=== PATIENT | female | born 1965 | race African-American/Black ===

== ENCOUNTER 2016-10-02 17:41 | Emergency (ER) | payer SELFPAY ==
[~2016-10-02] VITALS: Ht 162.6 cm; Wt 94.0 kg
[~2016-10-02 17:41] MED LIST: DICY1TAB26 PO; IBUP800T23 PO; LISI20 PO; PREV30CA36 PO
[2016-10-02 17:46] VITALS: BP 149/99; PULSE 87; RESP 16; TEMP 98.2; O2SAT 98
[2016-10-02 18:11] LABS: GLUCOSE,URINE NEG (NEG); KETONE, URINE NEG (NEG); NITRITE,URINE NEG (NEG)
[2016-10-02 18:18] LABS: BLOOD, URINE MOD (NEG)
[2016-10-02 18:20] LABS: BACTERIA, URINE OCC /hpf; COMMENT (UR) CULT NOT INDICATED; CULTURE IF INDICATED CULT NOT INDICATED; SQUAMOUS EPITHELIAL CELL URINE 0-5 /hpf (0-5); URINE COLOR YELLOW (YELLW/STRAW); WBC, URINE 0-2 /hpf (0-5)
[2016-10-02] MEDS ORDERED: LISI-515 PO (19:58)
--- NOTE | 2016-10-02 20:16 | PD ---
HPI Chief Complaint: Flank/Kidney Pain Time Seen by Provider: 19:44 Travel History International Travel<30 days: No Contact w/Intl Traveler<30days: No Traveled to known affect area: No History of Present Illness HPI 51-year-old female complains of hematuria, dysuria and frequency, right flank pain. Patient states that the symptoms started 3 days ago. Patient has history of similar symptoms about a year ago and was seen in emergency room at that time. CT abdomen pelvis with questionable kidney stone. Patient states that symptoms resolved completely subsequently. Patient denies any headache. Patient denies any chest pain or shortness of breath. Patient states that the pain is aching pain and sharp pain localized to right flank area. Patient denies any pain radiation. Patient denies any fever chills. Patient status post hysterectomy. PFSH Past Medical History Autoimmune Disease: No Blood Disorders: No Cancer: No Cardiovascular Problems: Yes (HTN ) Cerebrovascular Accident: Yes ( TIA 2005) Diabetes: No Diminished Hearing: No Endocrine: No Gastrointestinal Disorders: No Genitourinary: No Hypertension: Yes Immune Disorder: No Implanted Vascular Access Dvce: No Musculoskeletal: No Neurologic: Yes (TIA [place] 2006) Psychiatric: No Reproductive: No Respiratory: No Immunizations Current: No Thyroid Disease: No ?: Not : 2 Para: 1 Miscarriage: 1 : 0 Tubal Ligation: Yes Past Surgical History Cholecystectomy: Yes Gynecologic Surgery: Yes (HYSTERECTOMY) Hysterectomy: Yes Other Surgery: Yes Social History Alcohol Use: Yes (OCCASIONAL) Tobacco Use: No Substance Use: No Allergies-Medications (Allergen,Severity, Reaction): Coded Allergies: No Known Allergies (Verified , 10/02/16) Reported Meds & Prescriptions Reported Meds & Active Scripts Active Reported Lisinopril 20 Mg Tab 20 Mg PO DAILY Prinivil 20 mg (Lisinopril) 20 Mg Tab 20 Mg PO DAILY Review of Systems General / Constitutional: No: Fever Eyes: No: Visual changes HENT: No: Headaches Cardiovascular: No: Chest Pain or Discomfort Respiratory: No: Shortness of Breath Gastrointestinal: No: Abdominal Pain Genitourinary: Positive: Frequency, Dysuria, Hematuria Musculoskeletal: No: Pain Skin: No Rash Neurologic: No: Weakness Psychiatric: No: Depression Endocrine: No: Polydipsia Hematologic/Lymphatic: No: Easy Bruising Physical Exam Narrative GENERAL: Well-nourished, well-developed patient. SKIN: Warm and dry. HEAD: Normocephalic. EYES: No scleral icterus. No injection or drainage. NECK: Supple, trachea midline. No JVD or lymphadenopathy. CARDIOVASCULAR: Regular rate and rhythm without murmurs, gallops, or rubs. RESPIRATORY: Breath sounds equal bilaterally. No accessory muscle use. GASTROINTESTINAL: Abdomen soft, non-tender, nondistended. MUSCULOSKELETAL: No cyanosis, or edema. BACK: Patient has moderate tenderness on palpation of the right flank area. Data Data Last Documented VS Vital Signs Date Time Temp Pulse Resp B/P Pulse Ox O2 Delivery O2 Flow Rate FiO2 10/02/16 17:46 98.2 87 16 149/99 98 Orders Urinalysis - C+S If Indicated (10/02/16 17:50) Ct Abd/Pel W/O Iv Contrast (10/02/16 19:57) Labs Laboratory Tests Test 10/02/16 18:00 Urine Color YELLOW Urine Turbidity CLEAR Urine pH 6.0 Urine Specific [place] 1.026 Urine Protein NEG mg/dL Urine Glucose (UA) NEG mg/dL Urine Ketones NEG mg/dL Urine Occult Blood MOD Urine Nitrite NEG Urine Bilirubin NEG Urine Leukocyte Esterase NEG Urine RBC 3-5 /hpf Urine WBC 0-2 /hpf Urine Squamous Epithelial 0-5 /hpf Cells Urine Bacteria OCC /hpf Microscopic Urinalysis Comment CULT NOT INDICATED MDM Medical Decision Making Medical Screen Exam Complete: Yes Emergency Medical Condition: Yes Medical Record Reviewed: Yes Interpretation(s) Last Impressions Abdomen/Pelvis CT 10/02/161956 Signed Impressions: Service Date/Time: Sunday, October 02, 2016 20:17 - CONCLUSION: Essentially unremarkable study. Froy Schroeder MD 21:19 PM. UA is negative. CT scan abdomen pelvis negative acute pathology. Differential Diagnosis Differential diagnosis including nephrolithiasis, pyelonephritis, UTI, colitis, cholecystitis. Narrative Course 51-year-old female with right flank pain, hematuria, dysuria and frequency. Diagnosis Primary Impression: Right flank pain Patient Instructions: General Instructions Additional Instructions: Take medication as needed for pain. Follow-up with personal physician. Return if persistent problem or worse. Med/Other Pt SpecificInfo: Prescription(s) given Scripts Methocarbamol (Robaxin)750 Mg Gou790 Mg PO QID #40 TAB Prov:Hunter Recio MD 10/02/16 Meloxicam (Mobic)15 Mg Tab15 Mg PO DAILY #20 TAB Prov:Hunter Recio MD 10/02/16 Disposition: 01 DISCHARGE HOME Condition: Stable Hunter Recio MD Oct 02, 2016 20:16
--- NOTE | 2016-10-02 21:08 | RADHPO ---
EXAM DATE/TIME: 10/02/2016 20:17 [facility] COMPARISON: No previous studies available for comparison. INDICATIONS : Right sided flank pain. ORAL CONTRAST: No oral contrast ingested. RADIATION DOSE: 26.17 CTDIvol (mGy) MEDICAL HISTORY : Hypertension. SURGICAL HISTORY : Cholecystectomy. Tubal ligation.Hysterectomy. ENCOUNTER: Initial ACUITY: 3 days PAIN SCALE: 6/10 LOCATION: Right flank TECHNIQUE: Volumetric scanning of the abdomen and pelvis was performed. Using automated exposure control and ad justment of the mA and/or kV according to patient size, radiation dose was kept as low as reasonably achievable to obtain optimal diagnostic quality images. FINDINGS: CT Abdomen: The liver, spleen, pancreas, kidneys, adrenals are unremarkable. There is no evidence for any appreciable pathological adenopathy, free fluid, or bowel obstruction. There is no evidence for any stones in the kidneys or the course of the ureters on either side. There is no hydronephrosis. CT pelvis: There is no evidence for mass, abscess formation, or any significant adenopathy within the pelvis. There is a small bone island in the anterior column acetabulum on the left. The appendix kameron ears intact without definite signs of appendicitis. CONCLUSION: Essentially unremarkable study. Froy Schroeder MD on October 02, 2016 at 21:04 Board Certified Radiologist. This report was verified electronically.
[2016-10-02] MEDS ORDERED: MOBI15TA PO (21:23)
[2016-10-02] MEDS ORDERED: ROBA750T PO (21:23)
[2017-01-27] MEDS ORDERED: METF500T PO (09:05)
[2017-01-27] MEDS ORDERED: AMLO10 PO (09:10)
[2017-01-27] MEDS ORDERED: CHLO25TA2 PO (09:10)
== END 2016-10-02 21:35 | disposition home or self-care (01) ==
LOC: PHED 17:41
DX: R10.9 Unspecified abdominal pain (principal); R31.9 Hematuria, unspecified; R30.0 Dysuria
CPT/HCPCS: 74176; 81001

== ENCOUNTER 2016-11-30 18:58 | Emergency (ER) | payer OTHER ==
[~2016-11-30] VITALS: Ht 162.6 cm; Wt 95.1 kg
[~2016-11-30 18:58] MED LIST changes: -DICY1TAB26 PO; -IBUP800T23 PO; +LISI-515 PO; +MOBI15TA PO; -PREV30CA36 PO; +ROBA750T PO
[2016-11-30 19:04] VITALS: BP 145/97; PULSE 99; RESP 22; TEMP 98.8; O2SAT 98
--- NOTE | 2016-11-30 19:24 | PD ---
HPI Chief Complaint: Chest Pain Time Seen by Provider: 19:07 Travel History International Travel<30 days: No Contact w/Intl Traveler<30days: No Traveled to known affect area: No History of Present Illness HPI This 51-year-old female has multiple complaints. She's been having some tingling on the left side of her shoulder. She has occasional chest pain. She has a history of hypertension and is supposed to take lisinopril. She says that whenever she takes lisinopril she coughs a lot so she has not been taking it much. He did take it last night. She has no history of heart disease. She she does not smoke. She does say she has been under a lot of stress as her mother has been quite sick recently. PFSH Past Medical History Autoimmune Disease: No Blood Disorders: No Cancer: No Cardiovascular Problems: Yes (HTN ) Cerebrovascular Accident: Yes ( TIA 2005) Diabetes: No Diminished Hearing: No Endocrine: No Gastrointestinal Disorders: No Genitourinary: No Hypertension: Yes Immune Disorder: No Implanted Vascular Access Dvce: No Musculoskeletal: No Neurologic: Yes Psychiatric: No Reproductive: No Respiratory: No Immunizations Current: No Thyroid Disease: No ?: Not : 2 Para: 1 Miscarriage: 1 : 0 Tubal Ligation: Yes Past Surgical History Cholecystectomy: Yes Gynecologic Surgery: Yes (HYSTERECTOMY) Hysterectomy: Yes Other Surgery: Yes Social History Alcohol Use: Yes (OCCASIONAL) Tobacco Use: No Substance Use: No Allergies-Medications (Allergen,Severity, Reaction): Coded Allergies: No Known Allergies (Verified , 10/02/16) Reported Meds & Prescriptions Reported Meds & Active Scripts Active Robaxin (Methocarbamol) 750 Mg Tab 750 Mg PO QID Mobic (Meloxicam) 15 Mg Tab 15 Mg PO DAILY Reported Lisinopril 20 Mg Tab 20 Mg PO DAILY Prinivil 20 mg (Lisinopril) 20 Mg Tab 20 Mg PO DAILY Review of Systems General / Constitutional: No: Fever, Chills Eyes: No: Diploplia HENT: Positive: Headaches, No: Vertigo, Lightheadedness Cardiovascular: Positive: Chest Pain or Discomfort, No: Palpitations, Irregular Rhythm Respiratory: No: Cough, Shortness of Breath Gastrointestinal: No: Nausea, Vomiting Genitourinary: No: Urgency, Frequency Musculoskeletal: No: Myalgias, Arthralgias Skin: No Rash, No Itching Neurologic: No: Weakness, Dizziness, Syncope Endocrine: No: Heat Intolerance, Cold Intolerance Hematologic/Lymphatic: No: Easy Bruising Physical Exam Narrative GENERAL: Well-developed female SKIN: Focused skin assessment warm/dry. HEAD: Atraumatic. Normocephalic. EYES: Pupils equal and round. No scleral icterus. No injection or drainage. ENT: No nasal bleeding or discharge. Mucous membranes pink and moist. NECK: Trachea midline. No JVD. CARDIOVASCULAR: Regular rate and rhythm. No murmur appreciated. RESPIRATORY: No accessory muscle use. Clear to auscultation. Breath sounds equal bilaterally. GASTROINTESTINAL: Abdomen soft, non-tender, nondistended. Hepatic and splenic margins not palpable. MUSCULOSKELETAL: No obvious deformities. No clubbing. No cyanosis. No edema. NEUROLOGICAL: Awake and alert. No obvious cranial nerve deficits. Motor grossly within normal limits. Normal speech. PSYCHIATRIC: She does appear to be anxious; insight and judgment normal. Data Data Last Documented VS Vital Signs Date Time Temp Pulse Resp B/P Pulse Ox O2 Delivery O2 Flow Rate FiO2 11/30/16 19:52 98.0 92 16 152/72 95 Room Air Orders Electrocardiogram (11/30/16 19:21) Complete Blood Count With Diff (11/30/16 19:21) Comprehensive Metabolic Panel (11/30/16 19:21) Troponin I (11/30/16 19:21) Magnesium (Mg) (11/30/16 19:21) Chest, Single Ap (11/30/16 19:21) Amlodipine (Norvasc) (11/30/16 19:30) Lorazepam Inj (Ativan Inj) (11/30/16 20:00) Acetaminophen (Tylenol) (11/30/16 20:00) Potassium Chloride (Kcl) (11/30/16 20:15) Labs Laboratory Tests Test 11/30/16 19:50 White Blood Count 8.5 TH/MM3 Red Blood Count 4.60 MIL/MM3 Hemoglobin 12.9 GM/DL Hematocrit 38.2 % Mean Corpuscular Volume 83.0 FL Mean Corpuscular Hemoglobin 28.0 PG Mean Corpuscular Hemoglobin 33.7 % Concent Red Cell Distribution Width 12.8 % Platelet Count 412 TH/MM3 Mean Platelet Volume 8.0 FL Neutrophils (%) (Auto) 56.6 % Lymphocytes (%) (Auto) 34.3 % Monocytes (%) (Auto) 5.1 % Eosinophils (%) (Auto) 1.1 % Basophils (%) (Auto) 2.9 % Neutrophils # (Auto) 4.9 TH/MM3 Lymphocytes # (Auto) 2.9 TH/MM3 Monocytes # (Auto) 0.4 TH/MM3 Eosinophils # (Auto) 0.1 TH/MM3 Basophils # (Auto) 0.2 TH/MM3 CBC Comment DIFF FINAL Differential Comment Sodium Level 143 MEQ/L Potassium Level 3.3 MEQ/L Chloride Level 107 MEQ/L Carbon Dioxide Level 26.7 MEQ/L Anion Gap 9 MEQ/L Blood Urea Nitrogen 10 MG/DL Creatinine 0.90 MG/DL Estimat Glomerular Filtration 81 ML/MIN Rate Random Glucose 119 MG/DL Calcium Level 8.8 MG/DL Magnesium Level 2.2 MG/DL Total Bilirubin 0.4 MG/DL Aspartate Amino Transf 15 U/L (AST/SGOT) Alanine Aminotransferase 33 U/L (ALT/SGPT) Alkaline Phosphatase 70 U/L Troponin I LESS THAN 0.02 NG/ML Total Protein 7.5 GM/DL Albumin 3.7 GM/DL MDM Medical Decision Making Medical Screen Exam Complete: Yes Emergency Medical Condition: Yes Medical Record Reviewed: Yes Differential Diagnosis Differential includes hypertension, anxiety, Narrative Course Lab work is unremarkable. Does appear to be anxious and was given some Ativan. She cannot take lisinopril for her high blood pressure as it causes her to cough. Change her to Norvasc and also prescribed her some Ativan Diagnosis Primary Impression: Hypertension Qualified Code: I10 - Essential hypertension Scripts Lorazepam (Ativan)2 Mg Tab2 Mg PO Q6H PRN (ANXIETY AND/OR AGITATION) #20 TAB Ref 0 Prov:Cornelio Marino MD 11/30/16 Amlodipine (Norvasc)5 Mg Tab5 Mg PO DAILY #30 TAB Ref 0 Prov:Cornelio Marino MD 11/30/16 Disposition: 01 DISCHARGE HOME Condition: Stable Cornelio Marino MD Nov 30, 2016 19:24
[2016-11-30] MEDS ORDERED: amLODIPine BESYLATE 5 MG TAB PO ONE (19:30)
[2016-11-30 19:52] VITALS: BP 152/72; PULSE 92; RESP 16; TEMP 98; O2SAT 95
[2016-11-30 19:58] LABS: AUTOMATED NEUTROPHIL # 4.9 TH/MM3 (1.8-7.7); BASOPHIL # 0.2 TH/MM3 (0-0.2); BASOPHIL % 2.9 % (0.0-2.0); EOSINOPHIL # 0.1 TH/MM3 (0-0.4); EOSINOPHIL % 1.1 % (0.0-4.0); HEMATOCRIT 38.2 % (35.0-46.0); HEMO FLAGS DIFF FINAL; LYMPH % 34.3 % (9.0-44.0); LYMPHOCYTE # 2.9 TH/MM3 (1.0-4.8); MEAN CORPUSCULAR HGB CONC 33.7 % (32.0-36.0); MONO % 5.1 % (0.0-8.0); NEUT % 56.6 % (16.0-70.0); PLATELET COUNT 412 TH/MM3 (150-450); RED CELL DISTRIBUTION WIDTH 12.8 % (11.6-17.2); WHITE BLOOD COUNT 8.5 TH/MM3 (4.0-11.0)
[2016-11-30] MEDS ORDERED: LORazepam 2 MG/ML VIAL IV PUSH ONE (20:00)
[2016-11-30] MEDS ORDERED: ACETAMINOPHEN 325 MG TAB PO ONE (20:00)
--- NOTE | 2016-11-30 20:01 | RADHPO ---
EXAM DATE/TIME: 11/30/2016 19:43 [facility] COMPARISON: CHEST SINGLE AP, November 22, 2012, 12:08. INDICATIONS : Chest pain with uncontrolled blood pressures. MEDICAL HISTORY : Hypertension. SURGICAL HISTORY : None. ENCOUNTER: Initial ACUITY: 2 days PAIN SCORE: 7/10 LOCATION: Bilateral upper chest FINDINGS: There is a poor inspiratory result which limits evaluation of the chest. The heart is stable. No foca l alveolar consolidation is noted. There is crowding of the pulmonary vasculature. CONCLUSION: Poor inspiratory result which limits evaluation of the chest. There is crowding of the pulmonary vasc ulature. No alveolar consolidation is noted. David Vaughn MD on November 30, 2016 at 19:59 Board Certified Radiologist. This report was verified electronically.
[2016-11-30 20:09] LABS: CHLORIDE 107 MEQ/L (98-107); POTASSIUM 3.3 MEQ/L (3.5-5.1); SODIUM (NA) 143 MEQ/L (136-145)
[2016-11-30 20:10] VITALS: BP 159/79; PULSE 93; RESP 19; O2SAT 96
[2016-11-30 20:14] LABS: ANION GAP 9 MEQ/L (5-15); BICARBONATE 26.7 MEQ/L (21.0-32.0); BLOOD UREA NITROGEN 10 MG/DL (7-18); MAGNESIUM 2.2 MG/DL (1.5-2.5)
[2016-11-30] MEDS ORDERED: POTASSIUM CHLORIDE 20 MEQ CONTROLLED RELEASE TAB PO ONE (20:15)
[2016-11-30 20:17] LABS: ALT (GPT) 33 U/L (10-53); AST (GOT) 15 U/L (15-37); GLOMERULAR FILTRATION RATE 81 ML/MIN (>89)
[2016-11-30 20:19] LABS: TOTAL BILIRUBIN ADULT 0.4 MG/DL (0.2-1.0)
[2016-11-30 20:20] LABS: ALKALINE PHOSPHATASE 70 U/L (45-117)
[2016-11-30] MEDS ORDERED: LORA-475 PO (20:41)
[2016-11-30] MEDS ORDERED: AMLO5 PO (20:41)
[2016-11-30 21:00] VITALS: RESP 16
[2016-11-30 21:03] VITALS: BP 163/99
--- NOTE | 2016-12-02 08:17 | EKG ---
Date Performed: 11/30/2016 Time Performed: 19:38:38 PTAGE: 51 years EKG: Sinus rhythm Anterior T wave changes are nonspecific Borderline ECG Compared to PREVIOUS TRACING , the minimal anteroseptal T-wave changes are new. PREVIOUS TRACIN09/2013 17.59 DOCTOR: Candi Chavez Interpretating Date/Time 12/02/2016 08:16:22
[2017-01-27] MEDS ORDERED: METF500T PO (09:05)
[2017-01-27] MEDS ORDERED: CHLO25TA2 PO (09:10)
[2017-01-27] MEDS ORDERED: AMLO10 PO (09:10)
== END 2016-11-30 21:02 | disposition home or self-care (01) ==
LOC: PHED 18:58
DX: I10 Essential (primary) hypertension (principal); R94.31 Abnormal electrocardiogram [ECG] [EKG]
CPT/HCPCS: 71010; 80053; 83735; 84484; 85025; 93005; 96374; 99284; J2060

== ENCOUNTER 2017-01-28 06:03 | Observation (INO) | payer OTHER ==
[~2017-01-28] VITALS: Ht 162.6 cm; Wt 93.7 kg
[~2017-01-28 06:03] MED LIST changes: +AMLO10 PO; +CHLO25TA2 PO; -LISI-515 PO; -LISI20 PO; +METF500T PO; -MOBI15TA PO; -ROBA750T PO
[2017-01-28] MEDS ORDERED: INSULIN HUMAN REGULAR 1,000 UNITS/10 ML VIAL SQ PRN (06:30)
[2017-01-28] MEDS ORDERED: ceFAZolin 2 GM PREMIX 50 ML IV SCH (06:30)
[2017-01-28] MEDS ORDERED: LACTATED RINGER'S 1000 ML IV PRN ×2 (06:30→20:15)
[2017-01-28] MEDS ORDERED: CHLORHEXIDINE GLUCONATE 2 % 1 PACK (2 CLOTHS) TOPICAL PRN (06:30)
[2017-01-28] MEDS ORDERED: SODIUM CHLORID 0.9% 500 ML IV PRN (06:30)
[2017-01-28] MEDS ORDERED: METOPROLOL TARTRATE 25 MG TAB PO PRN (06:30)
[2017-01-28] MEDS ORDERED: POVIDONE IODINE 5% (ANTISEPSIS KIT) 4 APPLICATIONS EACH NARE PRN (06:30)
[2017-01-28 06:35] VITALS: BP 141/85; PULSE 95; RESP 18; TEMP 98.2; O2SAT 97
[2017-01-28] MEDS ORDERED: ACETAMINOPHEN 1000 MG/100 ML VIAL IV ONE (07:36)
[2017-01-28] MEDS ORDERED: fentaNYL CITRATE 250 MCG/5 ML AMP ONE (07:37)
[2017-01-28] MEDS ORDERED: FAMOTIDINE 20 MG/2 ML VIAL ONE (07:37)
[2017-01-28] MEDS ORDERED: MIDAZOLAM HCL 2 MG/2 ML VIAL ONE (07:37)
[2017-01-28] MEDS ORDERED: DEXAMETHASONE SOD PHOS 4 MG/ML VIAL ONE (07:37)
[2017-01-28] MEDS ORDERED: HYDROmorphone HCL PF 2 MG/ML VIAL ONE (07:59)
[2017-01-28] MEDS ORDERED: LIDOCAINE 1%/EPINEPHrine 1:100,000 SOLN 50 ML VIAL INFIL ONE ×2 (08:31→08:46)
[2017-01-28] MEDS ORDERED: PROMETHAZINE HCL 25 MG TAB PO PRN (11:45)
[2017-01-28] MEDS ORDERED: HYDROmorphone HCL PF 1 MG/ML VIAL IV PRN (11:45)
[2017-01-28] MEDS ORDERED: ONDANSETRON HCL 4 MG/2 ML VIAL IV PUSH ONE (12:00)
[2017-01-28] MEDS ORDERED: NEOSTIGMINE 3 MG/3 ML SYR IV ONE (12:00)
[2017-01-28] MEDS ORDERED: PROPOFOL 200 MG/20 ML AMP IV ONE ×2 (12:00)
[2017-01-28] MEDS ORDERED: *morphine SULFATE 8 MG/ML PERIprocedure ONLY ONE (12:14)
[2017-01-28] MEDS ORDERED: DO NOT ADM ANY ANTICOAGULANT DRUGS PRN (12:15)
[2017-01-28] MEDS: oxyCODONE/ACETAMINOPHEN 7.5 MG/325 MG TAB PO PRN ×2 (15:15→23:23)
[2017-01-28 20:00] VITALS: BP 124/69; PULSE 94; RESP 17; TEMP 96.2; O2SAT 95
--- NOTE | 2017-01-28 20:55 | MP ---
cc: NADIA TERRY DATE OF SURGERY 01/28/17 PREOPERATIVE DIAGNOSIS Bilateral macromastia with mild asymmetry POSTOPERATIVE DIAGNOSIS Bilateral macromastia with mild asymmetry OPERATION Bilateral reduction mammoplasty SURGEON Dr. Almita Terry. ANESTHESIA General INDICATIONS A 51-year-old black female with very large breast underwent detailed explanation of the breast reduction technique, pros, cons, risks and complications including loss of flap or to breast tissue, necrosis internally after surgery and possibility of poor wound healing, keloid hypertrophic scar, pigmented scar, chronic pain, wound dehiscence, chronic wound healing and possible additional surgeries to address the lower pole of the breast in case of dehiscence at the T-junction. The patient also understands the general risk and complication that goes with anesthesia and is willing to go ahead with the surgery. PROCEDURE IN DETAIL The patient was brought to the operating room, was given supine position. Anesthesia was started. Prep and drape was done. IV antibiotic had been given. the preoperative markings were reinforced. Time-out was called and completed. The inferior pedicle design was used. The lower portion of the breast skin was de-epithelialized over the pedicle itself and also laterally and medially all the way on both sides. The upper Laura pattern flaps were elevated after using tumescent lidocaine with epi and saline solution for hemostasis and the dermal lateral flap was released from lateral towards the medial border stopping at the anterior axillary line. The dermal portion was from the breast. The breast reduction was carried out from medial superior and partly medial breast mound. The medial side dermal pedicle was also released to leave behind approximately 8 cm of dermal base and allowing for better approximation of the flaps. Hemostasis was completed. Drains were placed. The upper flaps were joined together and then brought down to the inferior line adjusting them to make them approximately symmetrical on both sides, also adjusting the breast mound shape. The flaps were sutured in place with Vicryl and Prolene. The nipple alveolar complex was exteriorized at equal distance from the midline and also 10 cm from the inframammary fold position. They were sutured with Vicryl and Prolene as well. All the areas were cleaned, dried and sterile dressing was applied. Total tissue removed right approximately 500 grams plus another 20 grams from the nipple-areolar complex removal, left side 520 +20. The patient remained stable through the procedure. Intraoperative blood loss less than 100 mL. No complications. signed, not fully reviewed MD JOSE J Snyder/ /11:27 AM /8:49 PM MK
[2017-01-29] VITALS: BP 108/64; PULSE 91; RESP 17; TEMP 98.7; O2SAT 96
[2017-01-29 04:00] VITALS: BP 108/62; PULSE 87; RESP 17; TEMP 97.4; O2SAT 96
[2017-01-29 08:00] VITALS: BP 112/64; PULSE 72; RESP 13; TEMP 97.1; O2SAT 97
[2017-01-29] MEDS: oxyCODONE/ACETAMINOPHEN 7.5 MG/325 MG TAB PO PRN (08:02)
--- NOTE | 2017-01-29 11:25 | PD.PLAS.PN ---
Subjective Remarks Patient doing very well Pain moderate to mild, ok with Rx Both breasts soft, edema mild, no hematoma nipples sensitive to touch lower pole flaps look good, no significant congestion noted. Drains clean and working OK to dc home today. She has all the rx filled Vital Signs Date Time Temp Pulse Resp B/P Pulse Ox O2 Delivery O2 Flow Rate FiO2 01/29/17 08:00 97.1 72 13 112/64 97 01/29/17 04:00 97.4 87 17 108/62 96 01/29/17 00:00 98.7 91 17 108/64 96 01/28/17 20:00 96.2 94 17 124/69 95 01/28/17 12:15 80 19 138/64 100 Nasal Cannula 3 01/28/17 12:00 83 20 131/60 99 Nasal Cannula 3 01/28/17 11:45 76 26 133/59 97 Nasal Cannula 3 01/28/17 11:42 98.0 89 14 133/62 99 Nasal Cannula 3 I/O 01/28/17 01/28/17 01/28/17 01/29/17 01/29/17 01/29/17 07:00 15:00 23:00 07:00 15:00 23:00 Intake Total 1300 ml 338 ml 1264 ml Output Total 300 ml 1130 ml 930 ml Balance 1000 ml -792 ml 334 ml Intake Oral 240 ml 240 ml IV Total 98 ml 1024 ml Other 1300 ml Output Urine Total 200 ml 1100 ml 900 ml Drainage Total 30 ml 30 ml Estimated Blood Loss 100 ml Jero Terry MD January 29, 2017 11:25
== END 2017-01-29 12:49 | disposition home or self-care (01) ==
LOC: HSDC 06:03 → N07B 11:19
PROVIDERS: ADMIT Plastic Surgery; ATTEND Plastic Surgery
DX: N60.11 Diffuse cystic mastopathy of right breast (principal); N60.12 Diffuse cystic mastopathy of left breast; N62 Hypertrophy of breast; N64.89 Other specified disorders of breast; N64.4 Mastodynia; E11.9 Type 2 diabetes mellitus without complications; I10 Essential (primary) hypertension; E66.9 Obesity, unspecified; Z68.35 Body mass index [BMI] 35.0-35.9, adult
CPT/HCPCS: 00402; 19318; 88305; G0378; J0131; J0690; J1100; J1170; J2250; J2270; J2405; J2710; J3010; J7120; Q0169; 99285

== ENCOUNTER 2017-09-06 19:47 | Emergency (ER) | payer OTHER ==
[~2017-09-06] VITALS: Ht 162.6 cm; Wt 95.0 kg
[2017-09-06 19:52] VITALS: BP 166/89; PULSE 101; RESP 18; TEMP 99.1; O2SAT 98
[2017-09-06] MEDS ORDERED: BUTA1CAP PO (20:06)
[2017-09-06] MEDS ORDERED: HYDR25TA5 PO (20:06)
[2017-09-06] MEDS ORDERED: ATOR20TA15 PO (20:06)
[2017-09-06] MEDS ORDERED: OMEP40CA2 PO (20:06)
[2017-09-06] MEDS ORDERED: ZOLP10TA3 PO (20:06)
--- NOTE | 2017-09-06 20:46 | PD ---
HPI Chief Complaint: Seizure Time Seen by Provider: 20:14 Travel History International Travel<30 days: No Contact w/Intl Traveler<30days: No Traveled to known affect area: No History of Present Illness HPI 52 year-old female presents emergency department for evaluation of new onset seizures. Patient was brought in via EMS. She had what was described as a grand mal seizure by witnesses. Patient was sitting on the couch visiting a family member when the event occurred. Patient was incontinent of urine at the time. On arrival to the emergency department patient denies any pain and there is no postictal state observed. Patient is alert, oriented and moving all extremities appropriately. GCS 15. Recent medical history includes diabetes, hypertension, hyperlipidemia and migraines. Patient denies any aura prior to the event. Patient denies any nausea, vomiting , chest pain, short of breath, fevers, chills, malaise. She denies any recent head traumas or infections. PFSH Past Medical History Autoimmune Disease: No Blood Disorders: No Heart Rhythm Problems: No Cancer: No Cardiovascular Problems: Yes Chest Pain: No Congestive Heart Failure: No Cerebrovascular Accident: Yes ( TIA 2005) Diabetes: Yes (metformin) Patient Takes Glucophage: Yes Diminished Hearing: No Endocrine: Yes Gastrointestinal Disorders: No Genitourinary: No Hepatitis: No Hiatal Hernia: No Hypertension: Yes Immune Disorder: No Implanted Vascular Access Dvce: No Musculoskeletal: No Neurologic: No Psychiatric: No Reproductive: No Respiratory: No Immunizations Current: No Thyroid Disease: No ?: Not : 2 Para: 1 Miscarriage: 1 : 0 Tubal Ligation: Yes Past Surgical History Abdominal Surgery: Yes (gallbladder) AICD: No Cholecystectomy: Yes Gynecologic Surgery: Yes (HYSTERECTOMY) Hysterectomy: Yes Joint Replacement: No Pacemaker: No Other Surgery: Yes Social History Alcohol Use: Yes (OCCASIONAL) Tobacco Use: No Substance Use: No Allergies-Medications (Allergen,Severity, Reaction): Coded Allergies: No Known Allergies (Verified , 01/27/17) Reported Meds & Prescriptions Reported Meds & Active Scripts Active Reported Hydrochlorothiazide 25 Mg Tab 25 Mg PO BID Omeprazole 40 Mg Cap 40 Mg PO DAILY Atorvastatin (Atorvastatin Calcium) 20 Mg Tab 20 Mg PO HS Fioricet (Jpraecprdf-Fvxqnrmelsoaa-Xreykqng) 50-300-40 Mg Cap 1-2 Cap PO Q6H PRN Zolpidem (Zolpidem Tartrate) 10 Mg Tab 10 Mg PO HS PRN Chlorthalidone 25 Mg Tab 25 Mg PO BID Norvasc (Amlodipine Besylate) 10 Mg Tab 10 Mg PO DAILY Metformin (Metformin HCl) 500 Mg Tab 500 Mg PO BIDPC With meals Review of Systems Except as stated in HPI: all other systems reviewed are Neg Physical Exam Narrative GENERAL: Well-nourished, well-developed 52-year-old female in no acute distress. SKIN: Focused skin assessment warm/dry. HEAD: Atraumatic. Normocephalic. EYES: Pupils equal and round. No scleral icterus. No injection or drainage. ENT: No nasal bleeding or discharge. Mucous membranes pink and moist. NECK: Trachea midline. No JVD. CARDIOVASCULAR: Regular rate and rhythm. No murmur appreciated. RESPIRATORY: No accessory muscle use. Clear to auscultation. Breath sounds equal bilaterally. GASTROINTESTINAL: Abdomen soft, non-tender, nondistended. Hepatic and splenic margins not palpable. MUSCULOSKELETAL: No obvious deformities. No clubbing. No cyanosis. No edema. NEUROLOGICAL: Awake and alert. No obvious cranial nerve deficits. Motor grossly within normal limits. Normal speech. PSYCHIATRIC: Appropriate mood and affect; insight and judgment normal. Data Data Last Documented VS Vital Signs Date Time Temp Pulse Resp B/P (MAP) Pulse Ox O2 Delivery O2 Flow Rate FiO2 09/06/17 19:56 98 Room Air 09/06/17 19:52 99.1 101 18 166/89 (114) Orders Orders Complete Blood Count With Diff (09/06/17 20:14) Basic Metabolic Panel (Bmp) (09/06/17 20:14) Drug Screen, Random Urine (09/06/17 20:14) Electrocardiogram (09/06/17 ) Ct Brain W/O Iv Contrast(Rout) (09/06/17 ) Blood Glucose (09/06/17 20:14) Ecg Monitoring (09/06/17 20:14) Iv Access Insert/Monitor (09/06/17 20:14) Urinalysis - C+S If Indicated (09/06/17 20:14) Labs Laboratory Tests Test 09/06/17 20:10 09/06/17 22:00 White Blood Count 9.4 TH/MM3 Red Blood Count 4.60 MIL/MM3 Hemoglobin 12.3 GM/DL Hematocrit 37.3 % Mean Corpuscular Volume 81.1 FL Mean Corpuscular Hemoglobin 26.8 PG Mean Corpuscular Hemoglobin Concent 33.1 % Red Cell Distribution Width 14.5 % Platelet Count 462 TH/MM3 Mean Platelet Volume 7.7 FL Neutrophils (%) (Auto) 55.6 % Lymphocytes (%) (Auto) 37.6 % Monocytes (%) (Auto) 5.2 % Eosinophils (%) (Auto) 1.0 % Basophils (%) (Auto) 0.6 % Neutrophils # (Auto) 5.2 TH/MM3 Lymphocytes # (Auto) 3.5 TH/MM3 Monocytes # (Auto) 0.5 TH/MM3 Eosinophils # (Auto) 0.1 TH/MM3 Basophils # (Auto) 0.1 TH/MM3 CBC Comment DIFF FINAL Differential Comment Blood Urea Nitrogen 11 MG/DL Creatinine 0.88 MG/DL Random Glucose 105 MG/DL Calcium Level 8.5 MG/DL Sodium Level 143 MEQ/L Potassium Level 3.1 MEQ/L Chloride Level 109 MEQ/L Carbon Dioxide Level 29.4 MEQ/L Anion Gap 5 MEQ/L Estimat Glomerular Filtration Rate 82 ML/MIN Urine Color LIGHT-YELLOW Urine Turbidity CLEAR Urine pH 6.5 Urine Specific [place] 1.011 Urine Protein NEG mg/dL Urine Glucose (UA) NEG mg/dL Urine Ketones NEG mg/dL Urine Occult Blood TRACE Urine Nitrite NEG Urine Bilirubin NEG Urine Urobilinogen LESS THAN 2.0 MG/DL Urine Leukocyte Esterase NEG Urine RBC 1 /hpf Urine Squamous Epithelial Cells <1 /hpf Microscopic Urinalysis Comment CULT NOT INDICATED Urine Opiates Screen NEG Urine Barbiturates Screen NEG Urine Amphetamines Screen NEG Urine Benzodiazepines Screen NEG Urine Cocaine Screen NEG Urine Cannabinoids Screen NEG [facility] Medical Decision Making Medical Screen Exam Complete: Yes Emergency Medical Condition: Yes Differential Diagnosis Differential diagnosis includes but not limited to seizure, muscle spasm, electrolyte abnormality, syncope Narrative Course Patient placed on monitor, IV obtained. Blood work sent to the lab. CBC, BMP, drug screen, UA ordered and pending. EKG ordered and interpreted. EKG shows sinus tachycardia with heart rate 104. CBC shows a acute abnormality BMP hypokalemia at 3.1 UA shows no acute abnormalities, drug screen is negative. CT unremarkable. Patient observed and no seizure activity noted at our facility. Patient's vital signs are stable. Patient is in no acute distress. Patient is to be discharged home at this time with instructions to follow-up with neurology and not to operate or drive a vehicle until she follows up. Diagnosis Primary Impression: Seizure Referrals: Jesusita Riley MD Patient Instructions: General Instructions, New-Onset Seizure in Adults (ED) Additional Instructions: Please return to emergency department if your symptoms return or worsen. Follow up with a neurologist. I provided contact information for the neurologist application systems architect tonight. Do not drive or operate a vehicle until follow-up with a neurologist. Disposition: 01 DISCHARGE HOME Condition: Stable Frida Morejon Sep 06, 2017 20:46
--- NOTE | 2017-09-06 20:51 | RADRPT ---
EXAM DATE/TIME: 09/06/2017 20:17 [facility] COMPARISON: No previous studies available for comparison. INDICATIONS : Possible seizure today. RADIATION DOSE: 56.77 CTDIvol (mGy) MEDICAL HISTORY : Hypertension. diabetes SURGICAL HISTORY : Hysterectomy. ENCOUNTER: Initial ACUITY: 1 day PAIN SCALE: 0/10 LOCATION: Bilateral head TECHNIQUE: Multiple contiguous axial images were obtained of the head. Using automated exposure control and adj ustment of the mA and/or kV according to patient size, radiation dose was kept as low as reasonably a chievable to obtain optimal diagnostic quality images. DICOM format image data is available electro nically for review and comparison. FINDINGS: There is no evidence for intracranial hemorrhage, mass effect, mass lesions, edema, or extra-axial fl uid collections. The visualized bony structures appear intact. The ventricles are normal size for t he patient's age. There are no signs of acute infarction for technique. CONCLUSION: Unremarkable study. Froy Schroeder MD on September 06, 2017 at 20:47 Board Certified Radiologist. This report was verified electronically.
[2017-09-06 21:02] LABS: AUTOMATED NEUTROPHIL # 5.2 TH/MM3 (1.8-7.7); BASOPHIL # 0.1 TH/MM3 (0-0.2); BASOPHIL % 0.6 % (0.0-2.0); EOSINOPHIL # 0.1 TH/MM3 (0-0.4); HEMATOCRIT 37.3 % (35.0-46.0); HEMOGLOBIN 12.3 GM/DL (11.6-15.3); LYMPH % 37.6 % (9.0-44.0); LYMPHOCYTE # 3.5 TH/MM3 (1.0-4.8); MEAN CELL VOLUME 81.1 FL (80.0-100.0); MEAN CORPUSCULAR HEMOGLOBIN 26.8 PG (27.0-34.0); MEAN CORPUSCULAR HGB CONC 33.1 % (32.0-36.0); MEAN PLATELET VOLUME 7.7 FL (7.0-11.0); MONO % 5.2 % (0.0-8.0); MONOCYTE # 0.5 TH/MM3 (0-0.9); NEUT % 55.6 % (16.0-70.0); PLATELET COUNT 462 TH/MM3 (150-450); RED CELL DISTRIBUTION WIDTH 14.5 % (11.6-17.2); WHITE BLOOD COUNT 9.4 TH/MM3 (4.0-11.0)
[2017-09-06 21:14] LABS: BICARBONATE 29.4 MEQ/L (21.0-32.0); CALCIUM 8.5 MG/DL (8.5-10.1); CREATININE 0.88 MG/DL (0.50-1.00)
[2017-09-06 22:30] LABS: BILIRUBIN, URINE NEG (NEG); BLOOD, URINE TRACE (NEG); GLUCOSE,URINE NEG (NEG); KETONE, URINE NEG (NEG); NITRITE,URINE NEG (NEG); PH, URINE 6.5 (5.0-8.5); SQUAMOUS EPITHELIAL CELL URINE <1 /hpf (0-5); URINE COLOR LIGHT-YELLOW (YELLW/STRAW); URINE LEUKOCYTE ESTERASE NEG (NEG)
--- NOTE | 2017-09-07 18:03 | EKG ---
Date Performed: 09/06/2017 Time Performed: 20:01:38 PTAGE: 52 years EKG: SINUS TACHYCARDIA POSSIBLE LEFT ATRIAL ENLARGEMENT NONSPECIFIC T-WAVE ABNORMALITY ABNORMAL RHYTHM ECG PREVIOUS TRACING : 11/30/2016 19.38 Compared to prior tracing no significant change DOCTOR: Honey Martinez Interpretating Date/Time 09/07/2017 18:02:52
== END 2017-09-06 23:00 | disposition home or self-care (01) ==
LOC: NEPC 19:47
DX: R56.9 Unspecified convulsions (principal); R32 Unspecified urinary incontinence; R94.31 Abnormal electrocardiogram [ECG] [EKG]; E11.9 Type 2 diabetes mellitus without complications; I10 Essential (primary) hypertension; E78.5 Hyperlipidemia, unspecified; Z86.73 Personal history of transient ischemic attack (TIA), and cerebral infarction without residual deficits
CPT/HCPCS: 70450; 80048; 80307; 81001; 85025; 93005; 99285

== ENCOUNTER 2017-11-24 19:34 | Emergency (ER) | payer OTHER ==
[~2017-11-24 19:34] MED LIST changes: +ATOR20TA15 PO; +BUTA1CAP PO; +HYDR25TA5 PO; +OMEP40CA2 PO; +ZOLP10TA3 PO
[2017-11-24 19:57] VITALS: BP 183/83; PULSE 107; RESP 18; TEMP 98.6; O2SAT 98
[2017-11-24 21:22] VITALS: BP 145/76; PULSE 91; RESP 18; O2SAT 98
[2017-11-24] MEDS ORDERED: CLON.2 PO (21:22)
--- NOTE | 2017-11-24 21:32 | PD ---
HPI Chief Complaint: ENT Complaint Time Seen by Provider: 21:20 Travel History International Travel<30 days: No Contact w/Intl Traveler<30days: No Traveled to known affect area: No History of Present Illness HPI Patient is a 52-year-old female who reports having a swelling feeling in her throat difficulty swallowing she reports having history of a nodule in her thyroid which was discovered here in [place] but then she moved to [place] and has not seen anybody since then. She is not on any hypothyroid medication and she is not currently with an lead recreation assistant or surgeon or ENT doctor. Dr. Valentin she reports was the doctor who took care of her way back here in [place]. She denies fever cough sore throat no signs of upper respiratory infection she says the feeling is difficulty swallowing but she insisted is not a strep throat type pain. She has seen no other doctor for this currently and she is on no medication for this currently to alleviate her symptoms PFSH Past Medical History Autoimmune Disease: No Blood Disorders: No Heart Rhythm Problems: No Cancer: No Cardiovascular Problems: Yes Chest Pain: No Congestive Heart Failure: No Cerebrovascular Accident: Yes ( TIA 2005) Diabetes: Yes (metformin) Patient Takes Glucophage: Yes Diminished Hearing: No Endocrine: Yes Gastrointestinal Disorders: No Genitourinary: No Hepatitis: No Hiatal Hernia: No Hypertension: Yes Immune Disorder: No Implanted Vascular Access Dvce: No Musculoskeletal: No Neurologic: No Psychiatric: No Reproductive: No Respiratory: No Immunizations Current: No Thyroid Disease: No Influenza Vaccination: Yes ?: Not : 2 Para: 1 Miscarriage: 1 : 0 Tubal Ligation: Yes Past Surgical History Abdominal Surgery: Yes (gallbladder) AICD: No Cholecystectomy: Yes Gynecologic Surgery: Yes (HYSTERECTOMY) Hysterectomy: Yes Joint Replacement: No Pacemaker: No Other Surgery: Yes Social History Alcohol Use: Yes (OCCASIONAL) Tobacco Use: No Substance Use: No Allergies-Medications (Allergen,Severity, Reaction): Coded Allergies: No Known Allergies (Verified Adverse Reaction, Unknown, 11/24/17) Reported Meds & Prescriptions Reported Meds & Active Scripts Active Reported Catapres (Clonidine) 0.2 Mg Tab 0.2 Mg PO BID Hydrochlorothiazide 25 Mg Tab 25 Mg PO BID Atorvastatin (Atorvastatin Calcium) 20 Mg Tab 20 Mg PO HS Fioricet (Abbphxxadc-Prsnngvunfxsb-Mkxnzbyb) 50-300-40 Mg Cap 1-2 Cap PO Q6H PRN Zolpidem (Zolpidem Tartrate) 10 Mg Tab 10 Mg PO HS PRN Chlorthalidone 25 Mg Tab 25 Mg PO BID Norvasc (Amlodipine Besylate) 10 Mg Tab 10 Mg PO DAILY Metformin (Metformin HCl) 500 Mg Tab 500 Mg PO BIDPC With meals Review of Systems Except as stated in HPI: all other systems reviewed are Neg Physical Exam Narrative GENERAL: Awake alert no signs of respiratory distress no stridor SKIN: Warm and dry. HEAD: Atraumatic. Normocephalic. EYES: Pupils equal and round. No scleral icterus. No injection or drainage. ENT: No nasal bleeding or discharge. Mucous membranes pink and moist. NECK: Trachea midline. No JVD. No stridor auscultated at the nape of her neck bilateral no bruit or air turbulence heard with auscultation of her neck palpation of her thyroid I do not feel any large swelling there is no goiter and I do not feel any firm nodule seems symmetric and smooth CARDIOVASCULAR: Regular rate and rhythm. RESPIRATORY: No accessory muscle use. Clear to auscultation. Breath sounds equal bilaterally. Lungs bilaterally clear to auscultation no wheezes GASTROINTESTINAL: Abdomen soft, non-tender, nondistended. Hepatic and splenic margins not palpable. MUSCULOSKELETAL: Extremities without clubbing, cyanosis, or edema. No obvious deformities. NEUROLOGICAL: Awake and alert. No obvious cranial nerve deficits. Motor grossly within normal limits. Five out of 5 muscle strength in the arms and legs. Normal speech. PSYCHIATRIC: Appropriate mood and affect; insight and judgment normal. Data Data Last Documented VS Vital Signs Date Time Temp Pulse Resp B/P (MAP) Pulse Ox O2 Delivery O2 Flow Rate FiO2 11/24/17 23:13 11/24/17 21:22 91 18 98 Room Air 11/24/17 19:57 98.6 Orders Orders Soft Tissue Neck (11/24/17 ) Thyroid Stimulating Hormone (11/24/17 21:32) Free T3 (11/24/17 21:32) Thyroxine (T4) (11/24/17 21:32) Complete Blood Count With Diff (11/24/17 21:32) Comprehensive Metabolic Panel (11/24/17 21:32) Us Thyroid (11/24/17 ) Group A Rapid Strep Screen (11/24/17 21:35) Influenzae A/B Antigen (11/24/17 21:35) Strep Culture (Group A) (11/24/17 21:43) Ed Discharge Order (11/24/17 22:59) Labs Laboratory Tests Test 11/24/17 21:41 White Blood Count 9.7 TH/MM3 Red Blood Count 4.87 MIL/MM3 Hemoglobin 13.0 GM/DL Hematocrit 39.3 % Mean Corpuscular Volume 80.7 FL Mean Corpuscular Hemoglobin 26.6 PG Mean Corpuscular Hemoglobin Concent 33.0 % Red Cell Distribution Width 14.1 % Platelet Count 426 TH/MM3 Mean Platelet Volume 7.9 FL Neutrophils (%) (Auto) 53.2 % Lymphocytes (%) (Auto) 39.2 % Monocytes (%) (Auto) 5.0 % Eosinophils (%) (Auto) 1.3 % Basophils (%) (Auto) 1.3 % Neutrophils # (Auto) 5.1 TH/MM3 Lymphocytes # (Auto) 3.8 TH/MM3 Monocytes # (Auto) 0.5 TH/MM3 Eosinophils # (Auto) 0.1 TH/MM3 Basophils # (Auto) 0.1 TH/MM3 CBC Comment DIFF FINAL Differential Comment Blood Urea Nitrogen 7 MG/DL Creatinine 0.78 MG/DL Random Glucose 109 MG/DL Total Protein 8.0 GM/DL Albumin 3.9 GM/DL Calcium Level 8.9 MG/DL Alkaline Phosphatase 81 U/L Aspartate Amino Transf (AST/SGOT) 15 U/L Alanine Aminotransferase (ALT/SGPT) 30 U/L Total Bilirubin 0.2 MG/DL Sodium Level 140 MEQ/L Potassium Level 3.4 MEQ/L Chloride Level 105 MEQ/L Carbon Dioxide Level 25.6 MEQ/L Anion Gap 9 MEQ/L Estimat Glomerular Filtration Rate 95 ML/MIN Thyroxine (T4) 11.2 MCG/DL Free Triiodothyronine (T3) pg/dL 2.92 PG/ML Thyroid Stimulating Hormone 3rd Gen 1.490 uIU/ML MDM Medical Decision Making Medical Screen Exam Complete: Yes Emergency Medical Condition: Yes Differential Diagnosis pt has possible nodule vs strep throat vs flu vs bacterial tracheitis vs other pharyngitis other Narrative Course pt has US that shows two small nodules on the right and one on the left and a thymus nodule as well, I reviewed labs for thyroid they are all with in normal limits . flu and strep swab negative, I will refer to Dr Fernando Cai general surgery and [facility] for possible referral to an endocrine MD Diagnosis Primary Impression: Thyroid nodule Referrals: Fernando Cai MD Patient Instructions: General Instructions, Thyroid Nodules (ED) Additional Instructions: Your ultrasound shows that you have a few nodules in your thyroid and will need to see an lead recreation assistant and a general surgeon. I have put Dr. Fernando Cai who is a general surgeons number down. And we will give you a referral to [facility] for them to possibly find you a lead recreation assistant. Your labs were within normal limits for your thyroid but you must follow-up on your thyroid nodule possibly having a biopsy to definitively diagnose what they are. Most thyroid tumors are benign( not cancerous) but there are some that are malignant you must follow-up. If you have any difficulty following up return to the ER. Otherwise follow-up with your primary care doctor if referral for endocrinology is not otherwise available Disposition: 01 DISCHARGE HOME Condition: Fernando Maurice MD Nov 24, 2017 21:32
[2017-11-24 22:02] LABS: AUTOMATED NEUTROPHIL # 5.1 TH/MM3 (1.8-7.7); BASOPHIL # 0.1 TH/MM3 (0-0.2); BASOPHIL % 1.3 % (0.0-2.0); EOSINOPHIL # 0.1 TH/MM3 (0-0.4); EOSINOPHIL % 1.3 % (0.0-4.0); HEMATOCRIT 39.3 % (35.0-46.0); LYMPH % 39.2 % (9.0-44.0); LYMPHOCYTE # 3.8 TH/MM3 (1.0-4.8); MEAN CELL VOLUME 80.7 FL (80.0-100.0); MEAN CORPUSCULAR HEMOGLOBIN 26.6 PG (27.0-34.0); MEAN PLATELET VOLUME 7.9 FL (7.0-11.0); MONOCYTE # 0.5 TH/MM3 (0-0.9); NEUT % 53.2 % (16.0-70.0); PLATELET COUNT 426 TH/MM3 (150-450); RED BLOOD COUNT 4.87 MIL/MM3 (4.00-5.30); RED CELL DISTRIBUTION WIDTH 14.1 % (11.6-17.2); WHITE BLOOD COUNT 9.7 TH/MM3 (4.0-11.0)
[2017-11-24 22:18] LABS: ALBUMIN 3.9 GM/DL (3.4-5.0); AST (GOT) 15 U/L (15-37); BICARBONATE 25.6 MEQ/L (21.0-32.0); BLOOD UREA NITROGEN 7 MG/DL (7-18); CALCIUM 8.9 MG/DL (8.5-10.1); CHLORIDE 105 MEQ/L (98-107); CREATININE 0.78 MG/DL (0.50-1.00); GLOMERULAR FILTRATION RATE 95 ML/MIN (>89); GLUCOSE,RANDOM 109 MG/DL (74-106); SODIUM (NA) 140 MEQ/L (136-145)
[2017-11-24 22:28] LABS: ALKALINE PHOSPHATASE 81 U/L (45-117); ALT (GPT) 30 U/L (10-53); FREE T3 2.92 PG/ML (2.18-3.98); THYROXINE (T4) 11.2 MCG/DL (4.8-13.9); TOTAL BILIRUBIN ADULT 0.2 MG/DL (0.2-1.0)
--- NOTE | 2017-11-24 22:36 | RADRPT ---
EXAM DATE/TIME: 11/24/2017 21:51 [facility] COMPARISON: No previous studies available for comparison. INDICATIONS : Thyroid mass. MEDICAL HISTORY : Hypertension. . Cerebrovascular accident. Diabetes. Hypothyroidism. Measles. SURGICAL HISTORY : Tubal ligation. Cholecystectomy. Hysterectomy. ENCOUNTER: Initial ACUITY: 1 day PAIN SCORE: 110 LOCATION: Bilateral neck MEASUREMENTS: RIGHT LOBE: 4.8 x 1.6 x 2.2 cm LEFT LOBE: 4.9 x 2.1 x 2.3 cm FINDINGS: Bilateral Thyroid nodules are present. On the right side there is a solid nodule in the lower pole measuring up to 1.6 x 1.4 x 0.9 cm. On the left side there is a complex nodule in the upper pole measuring up to 1.1 x 0.7 x 0.8 cm. There is a 1.9 x 2.1 x 1.1 cm complex nodule in the isthmus. CONCLUSION: Bilateral small thyroid nodules as above. Nodules are well-circumscribed and have short axis diameter s of about 1 cm. Percy Trejo MD on November 24, 2017 at 22:28 Board Certified Radiologist. This report was verified electronically.
--- NOTE | 2017-11-24 22:41 | RADRPT ---
EXAM DATE/TIME: 11/24/2017 22:18 [facility] COMPARISON: No previous studies available for comparison. INDICATIONS : Difficulty swallowing with pain for 3 days. MEDICAL HISTORY : Hypertension. Diabetes. SURGICAL HISTORY : Hysterectomy. ENCOUNTER: Initial ACUITY: 3 days PAIN SCORE: 8/10 LOCATION: Neck. FINDINGS: Two view examination of the soft tissues of the neck demonstrates the hypopharyngeal airway to have a grossly normal configuration. The trachea is midline. No radiopaque foreign bodies are seen. CONCLUSION: 1. No acute findings. Percy Trejo MD on November 24, 2017 at 22:38 Board Certified Radiologist. This report was verified electronically.
== END 2017-11-24 23:17 | disposition home or self-care (01) ==
LOC: NED 19:34 → NEPE 23:17
DX: E04.1 Nontoxic single thyroid nodule (principal); E11.9 Type 2 diabetes mellitus without complications; I10 Essential (primary) hypertension; Z79.899 Other long term (current) drug therapy; Z86.73 Personal history of transient ischemic attack (TIA), and cerebral infarction without residual deficits
CPT/HCPCS: 70360; 76536; 80053; 84436; 84443; 84481; 85025; 87081; 87804; 87880; 99285